=== PATIENT | female | born 1935 | race Caucasian/White ===

== ENCOUNTER 2023-04-20 20:10 | Emergency (ER) | payer MEDICARE, SELFPAY ==
[2023-04-20 20:17] VITALS: BP 125/60; PULSE 77; RESP 18; TEMP 36.9; O2SAT 95
--- NOTE | 2023-04-20 21:51 | ED.FEMALEGU ---
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 She reports with her and daughter at bedside. Patient states since her CVA, she has had difficulty emptying her bladder so had a Bishop placed. States she had a new Bishop's yesterday prior to discharge and has not had any complications until today at 1200. She denies abdominal pain, fever, vomiting, back pain, hematuria or fever. She lives with her at home. She does have multiple areas of ecchymosis on her abdomen which she states is from injections she received while she was in rehab. She has not followed up with the urologist since being discharged from rehab but believes she has a name of a urologist she is supposed to follow-up with. She has an appoint with her PCP in 2 days. Related Data Allergies Allergy/AdvReac Type Severity Reaction Status Date / Time No Known Allergies Allergy Verified 04/04/23 00:18 Review of Systems Review of Systems: CONSTITUTIONAL: Denies fever, chills EYES: Denies visual changes, redness, or discharge. ENT: Denies rhinorrhea, congestion, sore throat, or otalgia. CARDIOVASCULAR: Denies chest pain, palpitations, or edema. RESPIRATORY: Denies cough or dyspnea. GASTROINTESTINAL: Denies abdominal pain, nausea, vomiting, or diarrhea. GENITOURINARY: See HPI SKIN: Denies rash or itching. MUSCULOSKELETAL: Denies back pain, joint pain, or myalgia. NEUROLOGIC: Denies headache, numbness, dizziness, or weakness. PSYCHIATRIC: Denies anxiety or depression. [facility] Social History Social History Smoking status: Unknown if ever smoked Alcohol intake: unknown Substance use: unknown Spiritual care concerns: No Exam Narrative: GENERAL: Well-appearing, in no acute distress. Patient resting comfortably in exam bed. She is pleasant and conversational. HEAD: Normocephalic ENT: Nares clear. Mucous membranes moist. Oropharynx without tonsillar hypertrophy exudate or other lesions. NECK: Supple. CHEST: No respiratory distress. Clear to auscultation, no adventitious breath sounds. HEART: Regular rate and rhythm. No murmur heard. Normal peripheral pulses. ABDOMEN: Soft, nontender, normal active bowel sounds. No CVA tenderness. Multiple areas of old ecchymosis over her abdomen. EXTREMITIES: Normal range of motion. No edema. SKIN: Warm, dry, no rash. NEURO: No focal deficits. Alert and oriented x3. PSYCH: Normal mood and affect. Course Vital Signs Vital signs: Vital Signs Temperature 98.4 F 04/20/23 20:17 Pulse Rate 77 04/20/23 20:17 Respiratory Rate 18 04/20/23 20:17 Blood Pressure 125/60 04/20/23 20:17 Pulse Oximetry 95 04/20/23 20:17 Oxygen Delivery Room Air 04/20/23 20:17 Temperature 98.4 F 04/20/23 20:17 Pulse Rate 77 04/20/23 20:17 Respiratory Rate 18 04/20/23 20:17 Blood Pressure 125/60 04/20/23 20:17 Pulse Oximetry 95 04/20/23 20:17 Oxygen Delivery Room Air 04/20/23 20:17 MDM - Female Genitourinary MDM Narrative Medical decision making narrative: 88-year-old female with history of chronic indwelling Bishop catheter since her CVA in March reports for evaluation for decreased urine output since 1200 today. Patient is well-appearing on exam, her abdomen is soft and nontender, no CVA tenderness. Bedside ultrasound performed showing 40 cc of urine in her bladder. Labs significant for no leukocytosis. Hemoglobin 11.2 which is better when compared to baseline. Chemistry significant for good renal labs including a creatinine of 0.6 and a BUN of 11.
[2023-04-20 22:10] LABS: Basophils Absolute Auto 0.1 K/mm3 (0.0-0.1); Basophils Percent Auto 0.8 % (0.2-1.2); Eosinophils Absolute Auto 0.3 K/mm3 (0-0.3); Eosinophils Percent Auto 4.5 % (0-4.4); Hemoglobin 11.2 g/dL (12.0-15.0); Immature Granulocyte Absolute 0.05 K/mm3 (0.00-0.031); Immature Granulocyte Percent A 0.8 % (0-0.5); Lymphocytes Absolute Auto 1.35 K/mm3 (0.9-3.2); Lymphocytes Percent Auto 22.4 % (18.3-44.2); Mean Corpuscular HGB Conc 30.3 g/dl (32-36); Mean Corpuscular Hemoglobin 29.1 pg (26-34); Mean Corpuscular Volume 96.1 fl (80-100); Monocytes Absolute Auto 0.7 K/mm3 (0.1-0.6); Monocytes Percent Auto 12.1 % (2.6-8.5); Neutrophils Absolute Auto 3.6 K/mm3 (1.3-6.7); Neutrophils Percent Auto 59.4 % (45.5-73.1); Platelet Count Result 255 k/mm3 (150-375); Red Blood Count 3.85 M/mm3 (4.2-5.4); Red Cell Distribution Width 13.8 % (11.5-14.5)
[2023-04-20] MEDS: SODIUM CHLORIDE 0.9% IV 1,000 ML 999 ML IV CONT (22:18)
[2023-04-20 22:19] LABS: Appearance Urine Clear (Clear); Bacteria Urine None Seen /hpf; Bilirubin Urine Negative (Negative); Blood Urine Negative (Negative); Calcium Oxalate Crystals Urine Present /hpf; Color Urine Dark Yellow (Yellow); Glucose Urine UA Negative (Negative); Ketones Urine Trace mg/dL (Negative); Leukocyte Esterase Ur 1+ LEU/UL (Negative); Nitrate Urine Negative (Negative); Protein Urine 1+ mg/dL (Negative); Squamous Epithelial Cell Urine Occasional /hpf (Few)
[2023-04-20 22:20] LABS: Add Urine Microscopic? YES; Alanine Aminotransferase 32 U/L (6-35); Albumin Level 3.2 g/dL (3.5-5.1); Alkaline Phosphatase 76 U/L (38-126); Anion Gap 5 mmol/L (8-16); Aspartate Amino Transferase 40 U/L (14-36); Bilirubin,Total 1.1 mg/dL (0.2-1.3); Blood Urea Nitrogen 11 mg/dL (7-17); Calcium 8.2 mg/dL (8.4-10.2); Carbon Dioxide 31 mmol/L (22-30); Chloride 103 mmol/L (98-107); Estimated CRCL calculation 49 ml/min; Estimated Glomerular Filt Rate > 60; Glucose 103 mg/dL (65-110); Potassium 3.7 mmol/L (3.4-5.0); Sodium 139 mmol/L (137-145)
[2023-04-21 00:34] VITALS: BP 109/65; PULSE 80; RESP 15; O2SAT 95
== END 2023-04-21 00:37 | disposition home or self-care (01) ==
PROVIDERS: Emergency Provider Physician Assistant
DX: R33.9 Retention of urine, unspecified (principal); I25.2 Old myocardial infarction; I10 Essential (primary) hypertension; Z86.73 Personal history of transient ischemic attack (TIA), and cerebral infarction without residual deficits
CPT/HCPCS: 36415; 51702; 80053; 81001; 85025; 87086; 96360; 99283; J7030

== ENCOUNTER 2024-03-17 11:27 | Outpatient (CLI) | payer MEDICARE, SELFPAY ==
--- NOTE | ~2024-03-17 | XR_ITS ---
EXAMINATION: XR scanogram DATE: 03/17/2024 12:02 INDICATION: Leg length inequality. TECHNIQUE: A single anteroposterior view of the pelvis and lower limbs standing was obtained. COMPARISON: None. FINDINGS: Right femoral head stands 1 mm higher than the left. There are bilateral total knee arthrop lasties in near-anatomic alignment. No fracture. No periprosthetic lucency to suggest loosening or in fection. There is lumbar levoscoliosis and severe spondylosis. IMPRESSION: 1. No significant limb length discrepancy. 2. Bilateral total knee arthroplasties in near-anatomic alignment. Reviewed, dictated and finalized at location A.
== END 2024-03-17 11:28 | disposition home or self-care (01) ==
LOC: ANHIMG 11:36
PROVIDERS: PCP Internal Medicine; Visit Provider Podiatrist Foot & Ankle Surgery
DX: M21.70 Unequal limb length (acquired), unspecified site (principal)
CPT/HCPCS: 77073